=== PATIENT | male | born 1985 | race Caucasian/White ===

== ENCOUNTER 2016-12-26 06:22 | Emergency (ER) | payer BC ==
[2016-12-26 06:37] VITALS: BP 138/79; TEMP 100.8; O2SAT 95
[2016-12-26] MEDS ORDERED: AZITHROMYCIN 250 MG TAB PO ONE (07:06)
[2016-12-26] MEDS ORDERED: methylPREDNISolone SODIUM SUC 125 MG/2 ML VIAL IM ONE (07:06)
--- NOTE | 2016-12-26 07:09 | ED.PDOC ---
History of Present Illness - General Chief Complaint: ENT Problem Stated Complaint: sore throat Time Seen by Provider: 12/26/16 07:05 Source: patient, RN notes reviewed, Vital Signs reviewed Exam Limitations: no limitations - History of Present Illness Initial Comments: Patient comes in with c/o sore throat and fever. Daughter recently diagnosed with Strep Throat. Timing/Duration: gradual Severity: severe EENT Location: throat Prearrival Treatment: no prearrival treatment Improving Factors: nothing Worsening Factors: eating - swallowing Associated Symptoms: fever, malaise, sore throat Allergies/Adverse Reactions: Allergies NO KNOWN ALLERGY Allergy (Verified 05/19/12 08:47) Home Medications: Ambulatory Orders Azithromycin 500 mg PO DAILY #4 tab 12/26/16 Multiple Vitamin [Multi Vitamin] 1 tab PO 12/26/16 Review of Systems - Review of Systems Constitutional: States: chills, fever, malaise EENTM: States: see HPI, throat pain, throat swelling Respiratory: States: no symptoms reported Cardiology: States: no symptoms reported Gastrointestinal/Abdominal: States: no symptoms reported Musculoskeletal: States: no symptoms reported Skin: States: no symptoms reported Neurological: States: no symptoms reported All other Systems: No Change from Baseline Past Medical History (General) - Patient Medical History Hx Diabetes: No Surgical History: no surgical history - Vaccination History Hx Influenza Vaccination: No Immunizations Up to Date: No - Social History Hx Tobacco Use: Yes Hx Alcohol Use: Yes Family Medical History - Family History Father Family History: Unknown Living Status: Unknown Physical Exam - Physical Exam General Appearance: Alert, No apparent distress, Ill Appearing, Well Developed, Well Groomed, Well Hydrated, Well Nourished Nasal Exam: normal inspection Throat Exam: pharynx swelling, pharynx tenderness, tonsillar exudate, tonsillar swelling Neck: full range of motion, supple, lymphadenopathy (R), lymphadenopathy (L) Cardiovascular/Respiratory: regular rate, rhythm, no M/R/G, normal breath sounds , no respiratory distress Neurologic: alert, normal mood/affect, oriented x 3 Skin Exam: normal color, warm/dry Comments: Vital Signs 12/26/16 06:34 Temperature 100.8 F H Pulse Rate [ 112 H Right] Respiratory 20 Rate Blood Pressure 138/79 [Left Arm] O2 Sat by Pulse 95 Oximetry Progress - Progress Progress: 12/26/16 07:08 Will give Zithromax 500mg PO and Solu-Medrol 125mg IM - Results/Orders Results/Orders: Laboratory Tests 12/26/16 06:37 Group A Strep Rapid Positive Influenza A & B: negative Departure - Departure Clinical Impression: Streptococcal sore throat Time of Disposition: 07:09 Disposition: Discharge to Home or Self Care Condition: Good Departure Forms: ED Discharge - Pt. Copy, Patient Portal Self Enrollment, Work Release Form Instructions: DI for Strep Throat Diet: resume usual diet Activity: ambulate only with walker Prescriptions: Azithromycin 500 mg PO DAILY #4 tab Home Medications: Ambulatory Orders Azithromycin 500 mg PO DAILY #4 tab 12/26/16 Multiple Vitamin [Multi Vitamin] 1 tab PO 12/26/16
== END 2016-12-26 07:34 | disposition home or self-care (01) ==
LOC: ER 06:22
DX: J02.0 Streptococcal pharyngitis (principal)
CPT/HCPCS: 87502; 87880; J2930; Q0144